=== PATIENT | male | born 1940 | race Caucasian/White ===

== ENCOUNTER 2019-11-24 11:05 | Day surgery (SDC) | payer BC ==
[~2019-11-24] VITALS: Ht 180.3 cm; Wt 108.2 kg
[2019-11-24] VITALS (11 sets, daily range): BP systolic 123–155; BP diastolic 57–78
[2019-11-24] MEDS ORDERED: LORazepam 0.5 MG tablet PO PRN (11:35)
[2019-11-24] MEDS ORDERED: normal saline 1,000 ML IV SCH (11:35)
[2019-11-24] MEDS ORDERED: nitroGLYCERIN 0.4mg SUBLingual tab SL PRN (11:35)
[2019-11-24] MEDS ORDERED: diphenhydrAMINE 25mg capsule PO PRN (11:35)
[2019-11-24] MEDS ORDERED: IRBE300T18 PO (11:52)
[2019-11-24] MEDS ORDERED: [UNRECOGNIZED DRUG - OTHER] (11:52)
[2019-11-24] MEDS ORDERED: INSU100I29 SQ (11:52)
[2019-11-24] MEDS ORDERED: ASCO1TAB (11:52)
[2019-11-24] MEDS ORDERED: MELO-102 PO (11:52)
[2019-11-24] MEDS ORDERED: EMPA10TA PO (11:52)
[2019-11-24] MEDS ORDERED: MV-M1TAB19 PO (11:52)
[2019-11-24] MEDS ORDERED: METF-950 PO (11:52)
[2019-11-24] MEDS ORDERED: FLO0.4C PO (11:52)
[2019-11-24] MEDS ORDERED: ASPI-611 PO (11:52)
[2019-11-24] MEDS ORDERED: GLUC-150 PO (11:52)
[2019-11-24] MEDS ORDERED: PRAV80TA3 PO (11:52)
[2019-11-24 11:59] LABS: CLARITY,URINE CLEAR (Clear); COLOR,URINE YELLOW (Yellow); GLUCOSE, URINE 500 mg/dl (Neg); KETONES,URINE NEGATIVE (Neg); LEUKOCYTE ESTERASE ,URINE NEGATIVE (Neg); NITRITES, URINE NEGATIVE (Neg); OCCULT BLOOD,URINE NEGATIVE (Neg); PROTEIN,URINE NEGATIVE (Neg); UROBILINOGEN,URINE 0.2 E.U/dL (0.2-1.0)
[2019-11-24 12:04] LABS: UA COLLECTION TYPE CLN CATCH MIDSTREAM
[2019-11-24] MEDS ORDERED: midazolam 2 mg/2 ml injection ONE (13:31)
[2019-11-24] MEDS ORDERED: LIDOcaine 1% (10mg/ml)w/preservative injection 20ml MDV ONE (13:31)
[2019-11-24] MEDS ORDERED: iohexol 350 MG/ML 50ML vial IV ONE (13:31)
[2019-11-24] MEDS ORDERED: iohexol 350MG/ML 100ml bottle IV ONE (13:31)
[2019-11-24] MEDS ORDERED: fentaNYL/PF 50MCG/1 ML 2ML syringe ONE (13:31)
[2019-11-24] MEDS ORDERED: ondansetron/PF 4mg/2ml inj IV PRN (14:55)
[2019-11-24] MEDS ORDERED: HYDROcodone/acetaminophen 5mg/325mg tablet PO PRN (15:00)
[2019-11-24] MEDS ORDERED: OXAZEpam 15mg capsule PO PRN (15:00)
[2019-11-24] MEDS ORDERED: proCHLORperazine 10 MG/2 ml inj IV PRN (15:00)
[2019-11-24] MEDS ORDERED: HYDROcodone/acetaminophen 10/325mg tab PO PRN (15:00)
[2019-11-25 14:23] LABS: % FREE PSA 25.3 % (.); PSA, FREE 0.86 ng/mL
== END 2019-11-24 19:59 | disposition home or self-care (01) ==
LOC: SSTAY O 11:05
PROVIDERS: ATTEND Internal Medicine Cardiovascular Disease
DX: R94.39 Abnormal result of other cardiovascular function study (principal); I25.10 Atherosclerotic heart disease of native coronary artery without angina pectoris; I10 Essential (primary) hypertension; E78.5 Hyperlipidemia, unspecified; E11.40 Type 2 diabetes mellitus with diabetic neuropathy, unspecified; J44.9 Chronic obstructive pulmonary disease, unspecified; M54.30 Sciatica, unspecified side; Z87.891 Personal history of nicotine dependence; Z79.899 Other long term (current) drug therapy; R06.02 Shortness of breath; R35.0 Frequency of micturition
CPT/HCPCS: 36415; 81003; 82948; 83880; 84153; 84154; 93005; 93458; 99152; 99153; C1760; C1769; J1644; J2001; J2250; J3010; J7030; Q0163; Q9967; A4620; A6258